=== PATIENT | male | born 1975 | race Two or more races ===

== ENCOUNTER → 2023-06-18 | Emergency (ER) | payer BC ==
[~2023-06-18] VITALS: Ht 180.3 cm; Wt 104.3 kg
[~2023-06-18] MED LIST: COZAAR50 MG PO; DICLOFENAC SODI75 MG PO; DUI500 PO
== END | disposition home or self-care (01) ==
LOC: ER 10:33
DX: H66.92 Otitis media, unspecified, left ear (principal); I10 Essential (primary) hypertension